=== PATIENT | female | born 1940 | race Caucasian/White ===

== ENCOUNTER → 2016-12-26 | Outpatient (CLI) | payer MEDICARE ==
[~2016-12-26] MED LIST: ALDACTONE25 MG PO; ASCORBIC ACID500 MG PO; ASPIRIN325 MG PO; CALAN80 MG PO; CALCIUM 600+D1 EAC3 PO; COLACE100 MG PO; DITROPAN XL5 MG PO; ELAVIL25 MG PO; FISH OIL 1,0001 EACH PO; FLEXERIL10 MG PO; HALDOL1 MG PO; LEVEMIR FL100 UNIT/1 SUB-Q; LEVEMIR100 UNIT/1 SUB-Q; LIPITOR80 MG PO; MIRALAX17 GM PO; NORCO 5-325 MG1 TAB PO; NOVOLOG FL100 UNIT/1 SUB-Q; NOVOLOG100 UNIT/M SUB-Q; PRINIVIL10 MG PO; PROTONIX40 MG PO; TRIACET 0.1% 8080 GM TOP; TRICOR145 MG PO; TYLENOL EXTRA500 MG PO; TYLENOL/COD#31 TAB PO; TYLENOL325 MG PO; VITAMIN B-12500 MCG PO; VITAMIN C250 M1 PO; VITAMIN E400 UNI2 PO
== END | disposition disaster alternative care site (69) ==
LOC: GRAD 10:39
DX: M54.9 Dorsalgia, unspecified (principal); M25.552 Pain in left hip; M47.816 Spondylosis without myelopathy or radiculopathy, lumbar region; Z98.890 Other specified postprocedural states

== ENCOUNTER → 2017-02-20 | Day surgery (SDC) | payer MEDICARE ==
--- NOTE | ~2017-02-20 | OR ---
PATIENT'S NAME: PANCHO GLORIA [facility] AGE: 76 Y [address] ROOM: [place] [address] LOCATION: [facility] – [place] ADMIT DATE: 02/20/2017 OR/Procedure Report DISCHARGE DATE: FAMILY PHYSICIAN: Chai Awad MD ATTENDING PHYSICIAN: CYNTHIA SWEET SURGEON: Agapito Layton CRNA INSURANCE SALES SPECIALIST: DATE OF PROCEDURE: 02/20/[address] Sweet. PROCEDURE: Right piriformis cortisone injection. DESCRIPTION OF PROCEDURE: After risks and benefits were discussed and accepted by the patient, the patient's operative site was identified and marked by me. The patient was then placed in the prone position. Sterile prep at the site of injection was performed. The right piriformis muscle was identified via ultrasound and 2 mL of 1% local was given at the site of injection. A 21-gauge 90 mm length [employer] ultrasound peripheral nerve block needle was inserted under direct visualization of ultrasound into the right piriformis muscle. The patient was without complaints during this injection. Medications utilized during this injection were 8 mL of 0.25% Marcaine and 8 mg of Decadron. The patient was then placed in supine position and right lower extremity was observed for signs of weakness and potential sciatic involvement during the block. The patient was given instructions to watch for lower leg weakness throughout the day and to ambulate with caution throughout the day and to report to Dr. Sweet per his orders. Thank you very much for this referral. AGAPITO LAYTON CRNA [facility]/modl /[id number] CC: Cynthia Sweet MD d: 02/20/17 1822 t: 03/09/17 0738, OPERATIVE SUMMARY
== END ==
LOC: GPOC 02-19 14:00 → GSDC 11:47
PROC: 3E0233Z Introduction of Anti-inflammatory into Muscle, Percutaneous Approach (ICD-10-PCS; principal; 2017-02-20)
PROC: 3E023BZ Introduction of Anesthetic Agent into Muscle, Percutaneous Approach (ICD-10-PCS; 2017-02-20)
DX: M25.551 Pain in right hip (principal); I10 Essential (primary) hypertension; E78.00 Pure hypercholesterolemia, unspecified; E11.9 Type 2 diabetes mellitus without complications; M19.90 Unspecified osteoarthritis, unspecified site; K21.9 Gastro-esophageal reflux disease without esophagitis; K44.9 Diaphragmatic hernia without obstruction or gangrene; K52.9 Noninfective gastroenteritis and colitis, unspecified; K57.92 Diverticulitis of intestine, part unspecified, without perforation or abscess without bleeding; Z79.899 Other long term (current) drug therapy; Z79.82 Long term (current) use of aspirin; Z79.4 Long term (current) use of insulin; F41.9 Anxiety disorder, unspecified
CPT/HCPCS: J1100

== ENCOUNTER → 2017-05-07 | Outpatient (CLI) | payer MEDICARE ==
--- NOTE | ~2017-05-07 | ENPV ---
Carotid Duplex Study Demographics Patient Name PANCHO GLORIA Date of Study 05/07/2017 Patient Number [id number] Gender Female Date of 1940 Age 76 Visit Number [id number] Height Accession Number [id number] Weight Room Number BSA BMI Referring ralph Chai Hernandez MD Physician Physician Physician Ordering Physician zulema Fields MD [employer] Gadiel Arriaza, RVT Conclusions Summary Incidental finding: The thyroid is abnormal bilaterally. The right proximal internal carotid artery has mild, 1-39%, stenosis by heterogeneous plaque. The left proximal internal carotid artery has mild, 1-39%, stenosis by heterogeneous/calcific plaque. Bilateral vertebral arteries are antegrade. Procedure Type of Study: Cerebral:Carotid, Carotid Doppler Bilateral. Indications for Study:Carotid Stenosis and Carotid Bruit. Appropriate Use Criteria:7 Patient Status:Routine. Study Location:Imaging Center. Technical Quality:Adequate visualization. Velocities are measured in cm/s ; Diameters are measured in cm Carotid Right Measurements Carotid Left Measurements + +--------+--------+ + + + +--------+ --------+ + + !Location !PSV !EDV !Angle !%Stenosis ! !Location !PSV ! EDV !Angle !%Stenosis ! + +--------+--------+ + + + +--------+ --------+ + + !Prox CCA !87 !12 !20 ! ! !Prox CCA !56 ! 9 !54 ! ! + +--------+--------+ + + + +--------+ --------+ + + !Dist CCA !53 !13 !60 ! ! !Dist CCA !48 ! 11 !54 ! ! + +--------+--------+ + + + +--------+ --------+ + + !Prox ICA !49 !11 !60 !1-39% ! !Prox ICA !54 ! 12 !54 !1-39% ! + +--------+--------+ + + + +--------+ --------+ + + !Dist ICA !93 !20 !28 ! ! !Dist ICA !70 ! 17 !60 ! ! + +--------+--------+ + + + +--------+ --------+ + + !Prox ECA !80 ! !54 ! ! !Prox ECA !67 ! !54 ! ! + +--------+--------+ + + + +--------+ --------+ + + !Vertebral !26 ! !60 ! ! !Vertebral !61 ! !54 ! ! + +--------+--------+ + + + +--------+ --------+ + + !Subclavian !76 ! ! ! ! !Subclavian !141 ! ! ! ! + +--------+--------+ + + + +--------+ --------+ + + - There is antegrade vertebral flow noted on the right side. - There is antegrade verte bral flow noted on the left side. - Add'l Measurements:ICAPSV/CCAPSV 1.07.ICAEDV/CCAEDV 1.58. - Add'l Measurements:ICAPS V/CCAPSV 1.24.ICAEDV/CCAEDV 1.98. Impressions Right Impression Tortuous common carotid artery. Tortuous internal carotid artery. Signature dtt: LESLIE MOREJON dtsolange: 05/07/17 0931 Physician Self Edit
== END | disposition disaster alternative care site (69) ==
LOC: GCAR 09:21 → GRAD 11:30
DX: N20.0 Calculus of kidney (principal); I65.23 Occlusion and stenosis of bilateral carotid arteries; R22.1 Localized swelling, mass and lump, neck

== ENCOUNTER → 2017-05-22 | Day surgery (SDC) | payer MEDICARE ==
[~2017-05-22] VITALS: Ht 152.4 cm; Wt 62.2 kg
--- NOTE | ~2017-05-22 | OR ---
PATIENT'S NAME: ESTELLA CHAPARRO [facility] AGE: 76 Y [address] ROOM: [place] [address] [place]: [facility] [place] ADMIT DATE: 05/22/2017 OR/Procedure Report DISCHARGE DATE: FAMILY PHYSICIAN: Chai Awad MD ATTENDING PHYSICIAN: CYNTHIA SWEET SURGEON: Agapito Layton CRNA DIORAMIST: DATE OF PROCEDURE: 05/22/2017 PROCEDURE: Piriformis injection. DESCRIPTION OF PROCEDURE: Estella Chaparro presents today as a referral from Dr. Sweet for a left piriformis injection. The patient was identified at the bedside in [facility] area, where risks and benefits were discussed and accepted by the patient. The patient was then placed into a prone position. Left piriformis muscle was identified via ultrasound. 1% Xylocaine skin wheal given at injection site, and the piriformis muscle was injected with an ultrasound, 90 cm needle. 7 mL of 0.25% Marcaine and 80 mg of Depo-Medrol was injected without difficulty. Patient was without complaints throughout the procedure. Site was clean, dried and a Band-Aid was placed. Patient was watched for 20 minutes in recovery and was sent home without complaints. Patient was instructed to call myself if any signs or symptoms worsen and to follow up with Dr. Sweet as needed. AGAPITO LAYTON CRNA [facility]/modl /[id number] d: 05/22/17 1855 t: 05/26/17 0835, OPERATIVE SUMMARY
== END ==
LOC: GPOC 05-21 15:00 → GSDC 10:41
PROC: 3E0233Z Introduction of Anti-inflammatory into Muscle, Percutaneous Approach (ICD-10-PCS; principal; 2017-05-22)
DX: G57.02 Lesion of sciatic nerve, left lower limb (principal); M79.1 Myalgia; L57.0 Actinic keratosis; M54.9 Dorsalgia, unspecified; N39.0 Urinary tract infection, site not specified; K59.00 Constipation, unspecified; E11.65 Type 2 diabetes mellitus with hyperglycemia; R41.3 Other amnesia; R09.89 Other specified symptoms and signs involving the circulatory and respiratory systems; E78.5 Hyperlipidemia, unspecified; I10 Essential (primary) hypertension; Z98.1 Arthrodesis status; M54.30 Sciatica, unspecified side; M54.16 Radiculopathy, lumbar region; Z88.2 Allergy status to sulfonamides; Z79.4 Long term (current) use of insulin
CPT/HCPCS: J1040